=== PATIENT | male | born 1955 | race African-American/Black ===

== ENCOUNTER 2018-12-04 08:18 | Inpatient (IN) | payer OTHER ==
[2018-12-04 08:53] VITALS: BMI 20.5
--- NOTE | 2018-12-04 09:20 | HP ---
COWS - Scale Resting Pulse: 0= [place] 80 or Below Sweatin= Chills/Flushing Restless Observation: 3= Extraneous Movement Pupil Size: 1= Pupils >than Normal Bone or Joint Aches: 2= Severe Diffuse Aches Runny Nose/ Eye Tearin= Runny Nose/Eyes GI Upset > 30mins: 2= Nausea/Diarrhea Tremor Observation: 2= Slight Tremor Visible Yawning Observation: 2= >3x During Session Anxiety or Irritability: 2=Irritable/Anxious Goose Flesh Skin: 0=Smooth Skin COWS Score: 17 CIWA Score - Admission Criteria [facility] Guidelines: Admission for Medically Managed Detox: Requires at least one of the followin. CIWA greater than 12 2. Seizures within the past 24 hours 3. Delirium tremens within the past 24 hours 4. Hallucinations within the past 24 hours 5. Acute intervention needed for co occurring medical disorder 6. Acute intervention needed for co occurring psychiatric disorder 7. Severe withdrawal that cannot be handled at a lower level of care (continued vomiting, continued diarrhea, abnormal vital signs) requiring intravenous medication and/or fluids 8. Admission ROS [facility] - [facility] Chief Complaint: i need help to stop using heroin and marijuana Allergies/Adverse Reactions: Allergies Allergy/AdvReac Type Severity Reaction Status Date / Time No Known Allergies Allergy Verified 12/04/18 10:16 History of Present Illness: this 63 years old male with heroin and marijuana dependence,seeking detox, withdrawal symptom,never been in detox before nicotine dependence weight loss need help to stop using drugs no period of sobriety - Ebola screening Have you traveled outside of the country in the last 21 days: No Have you had contact with anyone from an Ebola affected area: No Have you been sick,other than usual withdrawal symptoms: No Do you have a fever: No - Review of Systems Constitutional: Chills, Loss of Appetite, Malaise, Night Sweats, Changes in sleep, Weakness, Unintentional Wgt. Loss EENT: reports: Tearing, Nose Congestion Respiratory: reports: No Symptoms reported Cardiac: reports: No Symptoms Reported GI: reports: Diarrhea, Nausea, Abdominal cramping : reports: No Symptoms Reported Musculoskeletal: reports: Back Pain, Joint Pain, Muscle Pain, Joint Stiffness Integumentary: reports: Dryness Neuro: reports: Headache, Tremors Endocrine: reports: No Symptoms Reported Hematology: reports: No Symptoms Reported Psychiatric: reports: No Sypmtoms Reported, Judgement Intact, Mood/Affect Appropiate, Orientated x3 Other Systems: Reviewed and Negative Patient History - Patient Medical History Hx Anemia: No Hx Asthma: No Hx Chronic Obstructive Pulmonary Disease (COPD): No Hx Cancer: No Hx Cardiac Disorders: No Hx Congestive Heart Failure: No Hx Hypertension: No Hx Hypercholesterolemia: No Hx Pacemaker: No HX Cerebrovascular Accident: No Hx Seizures: No Hx Dementia: No Hx Diabetes: No Hx Gastrointestinal Disorders: No Hx Liver Disease: No Hx Genitourinary Disorders: No Hx Sexually Transmitted Disorders: No Hx Renal Disease (ESRD): No Hx Thyroid Disease: No Hx Human Immunodeficiency Virus (HIV): No (last 2018 negative) Hx Hepatitis C: No Hx Depression: No Hx Suicide Attempt: No Hx Bipolar Disorder: No Hx Schizophrenia: No Other Medical History: no suicidal,no homicidal,blindness of right eye since 1987,injutry right mills - Patient Surgical History Past Surgical History: No - PPD History Previous Implant?: Yes Documented Results: Positive w/o proof Implanted On Prior [facility] Admission?: No PPD to be Administered?: No - Smoking Cessation Smoking history: Current every day smoker Have you smoked in the past 12 months: Yes Aproximately how many cigarettes per day: 2 If you are a former smoker, when did you quit?: 0 Cigars Per Day: 0 Hx Chewing Tobacco Use: No Initiated information on smoking cessation: Yes 'Breaking Loose' booklet given: 12/04/18 - Substance & Tx. History Hx Alcohol Use: No Hx Substance Use: Yes Substance Use Type: Heroin, Marijuana Hx Substance Use Treatment: No - Substances Abused Heroin Route: Inhalation Frequency: Daily Amount used: 2 bags Age of first use: 60 Date of Last Use: 12/04/18 Marijuana/Hashish Route: Smoking Frequency: Daily Amount used: 10$ Age of first use: 16 Date of Last Use: 12/03/18 Family Disease History - Family Disease History Family Disease History: Diabetes: Mother (), Heart Disease: Father (sle, ), Brother (alcohol,dsa), Other: Father Admission Physical Exam BHS - Vital Signs Vital Signs: Vital Signs - 24 hr 12/04/18 08:46 Temperature 98.8 F Pulse Rate 78 Respiratory 18 Rate Blood Pressure 129/73 - Physical General Appearance: Yes: Moderate Distress, Tremorous, Irritable, Sweating, Anxious HEENTM: Yes: Normocephalic, Pharynx Normal, Other (blindness of right eye,past trauma,retinal damage) Respiratory: Yes: Lungs Clear, Normal Breath Sounds, No Respiratory Distress Neck: Yes: No masses,lesions,Nodules, Supple, Trachea in good position Breast: Yes: Within Normal Limits Cardiology: Yes: Within Normal Limits, Regular Rhythm, Regular Rate, S1, S2 Abdominal: Yes: Within Normal Limits, Normal Bowel Sounds, Non Tender, Flat, Soft Genitourinary: Yes: Within Normal Limits Back: Yes: Muscle Spasm Musculoskeletal: Yes: Back pain, Joint Stiffness, Muscle Pain Extremities: Yes: Tremors (history of traumatic injury in right hand) 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 NML intact, Fully Oriented, Alert, Motor Strength 5/5 Integumentary: Yes: Dry Lymphatic: Yes: Within Normal Limits - Diagnostic (1) Opioid dependence with withdrawal Current Visit: Yes Status: Acute (2) Cannabis dependence Current Visit: Yes Status: Acute (3) Blindness of right eye Current Visit: Yes Status: Acute (4) Weight loss Current Visit: Yes Status: Acute (5) Nicotine dependence Current Visit: Yes Status: Acute Cleared for Admission [facility] - Detox or Rehab [facility] Level of Care: Medically Managed Detox Regimen/Protocol: Methadone S Breath Alcohol Content Breath Alcohol Content: 0 Urine Drug Screen - Results Drug Screen Negative: No Urine Drug Screen Results: THC-Marijuana, OPI-Opiates Inpatient Rehab Admission - Rehab Decision to Admit Inpatient rehab admission?: No
[2018-12-04] MEDS ORDERED: MAGNESIUM HYDROX 2400MG/30ML ORAL SUSPENSION 30 ML CUP PO PRN (09:32)
[2018-12-04] MEDS ORDERED: LOPERAMIDE HCL 2 MG CAPSULE PO PRN (09:32)
[2018-12-04] MEDS ORDERED: MAGNESIUM CITRATE 300 ML BOTTLE PO PRN (09:32)
[2018-12-04] MEDS ORDERED: P-EPHED 60MG/TRIPROLIDI 2.5MG TABLET PO PRN (09:32)
[2018-12-04] MEDS ORDERED: ACETAMINOPHEN 325 MG TABLET (FP) PO PRN (09:32)
[2018-12-04] MEDS ORDERED: guaiFENesin/D-METHORPHAN HB 10 ML UNIT-DOSE CUPS PO PRN (09:32)
[2018-12-04] MEDS ORDERED: MAG HYDROX/AL HYDROX/SIMETH 30 ML UNIT-DOSE CUP PO PRN (09:32)
[2018-12-04] MEDS ORDERED: MENTHOL/PHENOL 1 EACH UD MM PRN (09:32)
[2018-12-04] MEDS ORDERED: hydrOXYzine PAMOATE 25 MG CAPSULE (FP) PO PRN (09:32)
[2018-12-04] MEDS ORDERED: METHADONE HCL 10 MG TABLET (FOR DETOX USE ONLY) PO ONE ×2 (11:35→23:00)
[2018-12-04] MEDS: diazePAM 5 MG TABLET PO PRN ×3 (12:17→22:36)
[2018-12-04] MEDS: PRENATAL VITAMINS W/ FOLIC ACID TABLET (FP) PO SCH (12:17)
[2018-12-04] MEDS: THIAMINE HCL 100 MG TABLET (FP) PO SCH (22:35)
[2018-12-05] MEDS: diazePAM 5 MG TABLET PO PRN ×2 (09:53→17:38)
[2018-12-05] MEDS ORDERED: METHADONE HCL 10 MG TABLET (FOR DETOX USE ONLY) PO ONE (10:00)
--- NOTE | 2018-12-05 10:45 | PN ---
BHS COWS - Scale Resting Pulse: 0= [place] 80 or Below Sweatin= Chills/Flushing Restless Observation: 1= Difficult to Sit Still Pupil Size: 1= Pupils >than Normal Bone or Joint Aches: 2= Severe Diffuse Aches Runny Nose/ Eye Tearin= Nasal Congestion GI Upset > 30mins: 2= Nausea/Diarrhea Tremor Observation of Outstretched Hands: 2= Slight Tremor Visible Yawning Observation: 1= 1-2x During Session Anxiety or Irritability: 1=Feels Anxious/Irritable Goose Flesh Skin: 0=Smooth Skin COWS Score: 12 BHS Progress Note (SOAP) Subjective: body aches joints pain tremor patient determines to maintain sober that grand children are waiting for him and he enjoy with them Objective: 12/05/18 10:51 Vital Signs Temperature 98.0 F 12/05/18 09:23 Pulse Rate 75 12/05/18 09:23 Respiratory Rate 18 12/05/18 09:23 Blood Pressure 134/83 12/05/18 09:23 O2 Sat by Pulse Oximetry (%) 12/05/18 10:52 lab noted Assessment: 12/05/18 10:52 withdrawal sx Plan: continue detox
[2018-12-05 10:47] LABS: HEMATOCRIT 44.8 % (35.4-49); HEMOGLOBIN 14.9 GM/dL (11.7-16.9); MCH 34.5 pg (25.7-33.7); MCHC 33.2 g/dl (32.0-35.9); MEAN CELL VOLUME 103.8 fl (80-96); MEAN PLT VOLUME 9.8 fl (7.5-11.1); PLATELET COUNT 241 K/MM3 (134-434); RBC 4.32 M/mm3 (4.00-5.60); RDW 14.1 % (11.9-15.9); WHITE BLOOD COUNT 11.1 K/mm3 (4.0-10.0)
[2018-12-05] MEDS: PRENATAL VITAMINS W/ FOLIC ACID TABLET (FP) PO SCH (10:53)
[2018-12-05 11:11] LABS: ALBUMIN 3.8 g/dl (3.4-5.0); ALK PHOS 71 U/L (45-117); ANION GAP 4 MMOL/L (8-16); BILIRUBIN,TOTAL 0.4 mg/dL (0.2-1); BLOOD UREA NITROGEN 12 mg/dL (7-18); CALCIUM 8.8 mg/dL (8.5-10.1); CHLORIDE 105 mmol/L (98-107); CO2 29 mmol/L (21-32); CREATININE 0.9 mg/dL (0.55-1.3); GLUCOSE,RANDOM 82 mg/dL (74-106); POTASSIUM 4.6 mmol/L (3.5-5.1); SGOT/AST 18 U/L (15-37); SGPT/ALT 15 U/L (13-61); SODIUM 138 mmol/L (136-145); TOT PROT 6.9 g/dl (6.4-8.2)
[2018-12-05 14:28] LABS: SICKLE CELL SCREEN NEGATIVE (NEGATIVE)
--- NOTE | 2018-12-05 16:33 | EKG ---
Test Reason : Blood Pressure : / mmHG Vent. Rate : 069 BPM Atrial Rate : 069 BPM P-R Int : 162 ms QRS Dur : 082 ms QT Int : 430 ms P-R-T Axes : 075 -31 -04 degrees QTc Int : 460 ms NORMAL SINUS RHYTHM WITH SINUS ARRHYTHMIA LEFT AXIS DEVIATION SEPTAL INFARCT (CITED ON OR BEFORE 06-JUL-2003) ABNORMAL ECG WHEN COMPARED WITH ECG OF 06-JUL-2003 00:50, NO SIGNIFICANT CHANGE WAS FOUND Confirmed by Feliberto Ramirez ([id number]) on 12/05/2018 4:33:10 PM Referred By: Confirmed By:Feliberto Ramirez
[2018-12-05] MEDS: IBUPROFEN 400 MG TABLET (FP) PO PRN (17:57)
[2018-12-05] MEDS: MELATONIN 5 MG TABLETS PO PRN (22:19)
[2018-12-05] MEDS: THIAMINE HCL 100 MG TABLET (FP) PO SCH (22:19)
[2018-12-06] MEDS: diazePAM 5 MG TABLET PO PRN ×4 (05:27→22:06)
[2018-12-06] MEDS ORDERED: METHADONE HCL 5 MG TABLET (FOR DETOX USE ONLY) PO ONE (10:00)
[2018-12-06] MEDS: PRENATAL VITAMINS W/ FOLIC ACID TABLET (FP) PO SCH (10:41)
--- NOTE | 2018-12-06 11:49 | PN ---
BHS COWS - Scale Resting Pulse: 0= [place] 80 or Below Sweatin= Chills/Flushing Restless Observation: 1= Difficult to Sit Still Pupil Size: 1= Pupils >than Normal Bone or Joint Aches: 2= Severe Diffuse Aches Runny Nose/ Eye Tearin= Nasal Congestion GI Upset > 30mins: 1= Stomach Cramp Tremor Observation of Outstretched Hands: 1= Tremor [place], Not Seen Yawning Observation: 1= 1-2x During Session Anxiety or Irritability: 1=Feels Anxious/Irritable Goose Flesh Skin: 0=Smooth Skin COWS Score: 10 S Progress Note (SOAP) Subjective: body aches tremor joints pain trouble sleep at night Objective: 12/06/18 11:50 Vital Signs Temperature 97.7 F 12/06/18 09:54 Pulse Rate 86 12/06/18 09:54 Respiratory Rate 18 12/06/18 09:54 Blood Pressure 113/69 12/06/18 09:54 O2 Sat by Pulse Oximetry (%) Laboratory Last Values WBC 11.1 K/mm3 (4.0-10.0) H 12/05/18 05:50 RBC 4.32 M/mm3 (4.00-5.60) 12/05/18 05:50 Hgb 14.9 GM/dL (11.7-16.9) 12/05/18 05:50 Hct 44.8 % (35.4-49) 12/05/18 05:50 MCV 103.8 fl (80-96) H 12/05/18 05:50 MCH 34.5 pg (25.7-33.7) H 12/05/18 05:50 MCHC 33.2 g/dl (32.0-35.9) 12/05/18 05:50 RDW 14.1 % (11.9-15.9) 12/05/18 05:50 Plt Count 241 K/MM3 (134-434) 12/05/18 05:50 MPV 9.8 fl (7.5-11.1) 12/05/18 05:50 Sickle Cell Screen Negative (NEGATIVE) 12/05/18 05:50 Sodium 138 mmol/L (136-145) 12/05/18 05:50 Potassium 4.6 mmol/L (3.5-5.1) 12/05/18 05:50 Chloride 105 mmol/L (98-107) 12/05/18 05:50 Carbon Dioxide 29 mmol/L (21-32) 12/05/18 05:50 Anion Gap 4 MMOL/L (8-16) L 12/05/18 05:50 BUN 12 mg/dL (7-18) 12/05/18 05:50 Creatinine 0.9 mg/dL (0.55-1.3) 12/05/18 05:50 Creat Clearance w eGFR > 60 (>60) 12/05/18 05:50 Random Glucose 82 mg/dL (74-106) 12/05/18 05:50 Calcium 8.8 mg/dL (8.5-10.1) 12/05/18 05:50 Total Bilirubin 0.4 mg/dL (0.2-1) 12/05/18 05:50 AST 18 U/L (15-37) 12/05/18 05:50 ALT 15 U/L (13-61) 12/05/18 05:50 Alkaline Phosphatase 71 U/L (45-117) 12/05/18 05:50 Total Protein 6.9 g/dl (6.4-8.2) 12/05/18 05:50 Albumin 3.8 g/dl (3.4-5.0) 12/05/18 05:50 RPR Titer Nonreactive (NONREACTIVE) 12/05/18 05:50 HIV 1&2 Antibody Screen Negative 12/04/18 10:00 HIV P24 Antigen Negative 12/04/18 10:00 lab noted Assessment: 12/06/18 11:50 withdrawal sx Plan: continue detox
[2018-12-06] MEDS: IBUPROFEN 400 MG TABLET (FP) PO PRN (17:43)
[2018-12-06] MEDS: THIAMINE HCL 100 MG TABLET (FP) PO SCH (22:04)
[2018-12-06] MEDS: MELATONIN 5 MG TABLETS PO PRN (22:06)
[2018-12-07] MEDS: diazePAM 5 MG TABLET PO PRN (05:03)
[2018-12-07] MEDS ORDERED: METHADONE HCL 5 MG TABLET (FOR DETOX USE ONLY) PO ONE (10:00)
--- NOTE | 2018-12-07 10:21 | PN ---
BHS COWS - Scale Resting Pulse: 0= [place] 80 or Below Sweatin= Chills/Flushing Restless Observation: 0= Sits Still Pupil Size: 1= Pupils >than Normal Bone or Joint Aches: 1= Mild Discomfort Runny Nose/ Eye Tearin= Nasal Congestion GI Upset > 30mins: 1= Stomach Cramp Tremor Observation of Outstretched Hands: 1= Tremor [place], Not Seen Yawning Observation: 1= 1-2x During Session Anxiety or Irritability: 1=Feels Anxious/Irritable Goose Flesh Skin: 0=Smooth Skin COWS Score: 8 BHS Progress Note (SOAP) Subjective: body aches joints pain tremor trouble sleep through the night Objective: 12/07/18 10:22 Vital Signs Temperature 97.6 F 12/07/18 09:43 Pulse Rate 75 12/07/18 09:43 Respiratory Rate 18 12/07/18 09:43 Blood Pressure 123/74 12/07/18 09:43 O2 Sat by Pulse Oximetry (%) Laboratory Last Values WBC 11.1 K/mm3 (4.0-10.0) H 12/05/18 05:50 RBC 4.32 M/mm3 (4.00-5.60) 12/05/18 05:50 Hgb 14.9 GM/dL (11.7-16.9) 12/05/18 05:50 Hct 44.8 % (35.4-49) 12/05/18 05:50 MCV 103.8 fl (80-96) H 12/05/18 05:50 MCH 34.5 pg (25.7-33.7) H 12/05/18 05:50 MCHC 33.2 g/dl (32.0-35.9) 12/05/18 05:50 RDW 14.1 % (11.9-15.9) 12/05/18 05:50 Plt Count 241 K/MM3 (134-434) 12/05/18 05:50 MPV 9.8 fl (7.5-11.1) 12/05/18 05:50 Sickle Cell Screen Negative (NEGATIVE) 12/05/18 05:50 Sodium 138 mmol/L (136-145) 12/05/18 05:50 Potassium 4.6 mmol/L (3.5-5.1) 12/05/18 05:50 Chloride 105 mmol/L (98-107) 12/05/18 05:50 Carbon Dioxide 29 mmol/L (21-32) 12/05/18 05:50 Anion Gap 4 MMOL/L (8-16) L 12/05/18 05:50 BUN 12 mg/dL (7-18) 12/05/18 05:50 Creatinine 0.9 mg/dL (0.55-1.3) 12/05/18 05:50 Creat Clearance w eGFR > 60 (>60) 12/05/18 05:50 Random Glucose 82 mg/dL (74-106) 12/05/18 05:50 Calcium 8.8 mg/dL (8.5-10.1) 12/05/18 05:50 Total Bilirubin 0.4 mg/dL (0.2-1) 12/05/18 05:50 AST 18 U/L (15-37) 12/05/18 05:50 ALT 15 U/L (13-61) 12/05/18 05:50 Alkaline Phosphatase 71 U/L (45-117) 12/05/18 05:50 Total Protein 6.9 g/dl (6.4-8.2) 12/05/18 05:50 Albumin 3.8 g/dl (3.4-5.0) 12/05/18 05:50 RPR Titer Nonreactive (NONREACTIVE) 12/05/18 05:50 HIV 1&2 Antibody Screen Negative 12/04/18 10:00 HIV P24 Antigen Negative 12/04/18 10:00 lab noted Assessment: 12/07/18 10:23 opiate withdrawal sx discuss medication assisted treatment programs Plan: continue detox discuss narcan kit
[2018-12-07] MEDS: PRENATAL VITAMINS W/ FOLIC ACID TABLET (FP) PO SCH (10:27)
[2018-12-07] MEDS: MELATONIN 5 MG TABLETS PO PRN (22:30)
[2018-12-07] MEDS: THIAMINE HCL 100 MG TABLET (FP) PO SCH (22:30)
[2018-12-08] MEDS ORDERED: METHADONE HCL 10 MG TABLET (FOR DETOX USE ONLY) PO ONE (10:00)
[2018-12-08] MEDS: PRENATAL VITAMINS W/ FOLIC ACID TABLET (FP) PO SCH (10:18)
--- NOTE | 2018-12-08 17:20 | PN ---
S Progress Note (SOAP) Subjective: Patient denies current Withdrawal / Detox symptoms and reports that he feels well overall. Objective: PATIENT A & O X 3, OBSERVED AMBULATING ON UNIT. IN NO ACUTE DISTRESS. 12/08/18 17:18 Vital Signs Temperature 98.8 F 12/08/18 13:37 Pulse Rate 86 12/08/18 13:37 Respiratory Rate 18 12/08/18 13:37 Blood Pressure 116/78 12/08/18 13:37 O2 Sat by Pulse Oximetry (%) Laboratory Tests 12/04/18 12/05/18 12/05/18 10:00 05:50 05:50 WBC 11.1 H RBC 4.32 Hgb 14.9 Hct 44.8 MCV 103.8 H MCH 34.5 H MCHC 33.2 RDW 14.1 Plt Count 241 MPV 9.8 Sickle Cell Screen Negative Sodium 138 Potassium 4.6 Chloride 105 Carbon Dioxide 29 Anion Gap 4 L BUN 12 Creatinine 0.9 Creat Clearance w eGFR > 60 Random Glucose 82 Calcium 8.8 Total Bilirubin 0.4 AST 18 ALT 15 Alkaline Phosphatase 71 Total Protein 6.9 Albumin 3.8 RPR Titer HIV 1&2 Antibody Screen Negative HIV P24 Antigen Negative 12/05/18 05:50 WBC RBC Hgb Hct MCV MCH MCHC RDW Plt Count MPV Sickle Cell Screen Sodium Potassium Chloride Carbon Dioxide Anion Gap BUN Creatinine Creat Clearance w eGFR Random Glucose Calcium Total Bilirubin AST ALT Alkaline Phosphatase Total Protein Albumin RPR Titer Nonreactive HIV 1&2 Antibody Screen HIV P24 Antigen LABS NOTED. Assessment: 12/08/18 17:19 WITHDRAWAL SYMPTOMS. Plan: CONTINUE DETOX. PATIENT SCHEDULED FOR D/C TOMORROW .
[2018-12-08] MEDS: MELATONIN 5 MG TABLETS PO PRN (22:18)
[2018-12-08] MEDS: THIAMINE HCL 100 MG TABLET (FP) PO SCH (22:18)
[2018-12-09] MEDS ORDERED: METHADONE HCL 5 MG TABLET (FOR DETOX USE ONLY) PO ONE (06:00)
[2018-12-09 09:29] VITALS: BP 117/74; PULSE 84; TEMP 97.2
--- NOTE | 2018-12-09 19:27 | DS ---
[facility] Detox Discharge Summary Admission Date: 12/04/18 Discharge Date: 12/09/18 - History Present History: Cannabis Dependence, Opioid Dependence Additional Comments: PATIENT WILL ATTEND '[facility]' OUTPATIENT SUBSTANCE USE TREATMENT PROGRAM ( [place], [place]) FOR AFTERCARE. PATIENT WAS DISCHARGED FROM DETOX UNIT IN STABLE MEDICAL CONDITION. Pertinent Past History: Blindness of Right Eye, Weight Loss, Nicotine Dependence. - Physical Exam Results Vital Signs: Vital Signs Temperature 97.2 F L 12/09/18 09:29 Pulse Rate 84 12/09/18 09:29 Respiratory Rate 18 12/09/18 09:29 Blood Pressure 117/74 12/09/18 09:29 O2 Sat by Pulse Oximetry (%) Pertinent Admission Physical Exam Findings: WITHDRAWAL SYMPTOMS. Laboratory Tests 12/04/18 12/05/18 12/05/18 10:00 05:50 05:50 WBC 11.1 H RBC 4.32 Hgb 14.9 Hct 44.8 MCV 103.8 H MCH 34.5 H MCHC 33.2 RDW 14.1 Plt Count 241 MPV 9.8 Sickle Cell Screen Negative Sodium 138 Potassium 4.6 Chloride 105 Carbon Dioxide 29 Anion Gap 4 L BUN 12 Creatinine 0.9 Creat Clearance w eGFR > 60 Random Glucose 82 Calcium 8.8 Total Bilirubin 0.4 AST 18 ALT 15 Alkaline Phosphatase 71 Total Protein 6.9 Albumin 3.8 RPR Titer HIV 1&2 Antibody Screen Negative HIV P24 Antigen Negative 12/05/18 05:50 WBC RBC Hgb Hct MCV MCH MCHC RDW Plt Count MPV Sickle Cell Screen Sodium Potassium Chloride Carbon Dioxide Anion Gap BUN Creatinine Creat Clearance w eGFR Random Glucose Calcium Total Bilirubin AST ALT Alkaline Phosphatase Total Protein Albumin RPR Titer Nonreactive HIV 1&2 Antibody Screen HIV P24 Antigen LABS NOTED. - Treatment Hospital Course: Detox Protocol Followed, Detoxed Safely, Responded well, Discharged Condition Good Patient has Accepted a Rehab Referral to: PT. DECLINED, WILL ATTEND [facility] OP TREATMENT PROGRAM ([place], [place]) - Medication Discharge Medications: Ambulatory Orders Naloxone HCl [Narcan] 4 mg NS ASDIR PRN #1 kit 12/09/18 - Diagnosis (1) Blindness of right eye Status: Acute (2) Cannabis dependence Status: Acute (3) Nicotine dependence Status: Acute Qualifiers: Nicotine product type: cigarettes Substance use status: uncomplicated Qualified Code(s): F17.210 - Nicotine dependence, cigarettes, uncomplicated (4) Opioid dependence with withdrawal Status: Acute (5) Weight loss Status: Acute - AMA Did Patient Leave Against Medical Advice: No
== END 2018-12-09 09:10 | disposition home or self-care (01) | DRG 897 ==
LOC: YASAS 08:18 → Y3N 10:47
PROVIDERS: ADMIT Surgery; ATTEND Surgery
PROC: HZ2ZZZZ Detoxification Services for Substance Abuse Treatment (ICD-10-PCS; principal; 2018-12-04)
DX: F11.23 Opioid dependence with withdrawal (principal); F12.20 Cannabis dependence, uncomplicated; F17.210 Nicotine dependence, cigarettes, uncomplicated; H54.40 Blindness, one eye, unspecified eye
CPT/HCPCS: 36415; 71045-TC-FY; 80053; 85027; 85660; 86593; 87389; 93005; 93010